=== PATIENT | female | born 1995 | race Caucasian/White ===

== ENCOUNTER → 2017-07-16 | Outpatient (REF) | payer OTHER ==
[2017-07-16 13:59] LABS: FREE T4 1.01 NG/DL (0.76-1.46)
[2017-07-16 17:21] LABS: CHLAMYDIA DNA AMPLIFICATION POSITIVE (NEGATIVE); GC DNA AMPLIFICATION NEGATIVE (NEGATIVE)
== END ==
LOC: M SFHCWAGY 11:50
DX: N92.6 Irregular menstruation, unspecified (principal)

== ENCOUNTER → 2017-09-05 | Outpatient (REF) | payer OTHER ==
[2017-09-05 17:52] LABS: CHLAMYDIA DNA AMPLIFICATION NEGATIVE (NEGATIVE); GC DNA AMPLIFICATION NEGATIVE (NEGATIVE)
== END ==
LOC: M SFHCWAGY 15:52
DX: Z51.89 Encounter for other specified aftercare (principal); Z86.19 Personal history of other infectious and parasitic diseases; Z11.8 Encounter for screening for other infectious and parasitic diseases

== ENCOUNTER → 2017-09-26 | Outpatient (REF) | payer OTHER ==
[2017-09-26 15:05] LABS: CHLAMYDIA DNA AMPLIFICATION NEGATIVE (NEGATIVE); GC DNA AMPLIFICATION NEGATIVE (NEGATIVE)
== END ==
LOC: M SMT 13:00
DX: Z86.19 Personal history of other infectious and parasitic diseases (principal); Z11.3 Encounter for screening for infections with a predominantly sexual mode of transmission; N92.6 Irregular menstruation, unspecified
CPT/HCPCS: 87591

== ENCOUNTER → 2017-10-01 | Outpatient (CLI) | payer OTHER | LOC: M WHC 14:02 | DX: N92.6 Irregular menstruation, unspecified (principal) | CPT/HCPCS: 76830 ==

== ENCOUNTER 2017-10-17 19:50 | Emergency (ER) | payer OTHER ==
[2017-10-17] MEDS: CEPHALEXIN 500 MG CAP PO (21:15)
== END 2017-10-17 21:20 | disposition home or self-care (01) ==
LOC: M ED 19:50
DX: L03.211 Cellulitis of face (principal)
CPT/HCPCS: 99282

== ENCOUNTER → 2017-10-29 | Outpatient (REF) | payer OTHER ==
[2017-10-29 14:16] LABS: CHLAMYDIA DNA AMPLIFICATION NEGATIVE (NEGATIVE); GC DNA AMPLIFICATION NEGATIVE (NEGATIVE)
[2017-10-30 09:46] LABS: HIV 1&2 SCREEN CENTAUR NEGATIVE (NEGATIVE)
== END ==
LOC: M SFHCWAGY 09:43
DX: Z11.3 Encounter for screening for infections with a predominantly sexual mode of transmission (principal); Z11.4 Encounter for screening for human immunodeficiency virus [HIV]
CPT/HCPCS: 36415

== ENCOUNTER 2018-01-04 16:47 | Emergency (ER) | payer OTHER ==
[2018-01-04] MEDS: METOCLOPRAMIDE 10 MG TAB PO (17:14)
[2018-01-04 17:48] LABS: AMORPHOUS SEDIMENT RFX LARGE (NEGATIVE); KETONE, URINE AUTO RFX NEGATIVE (NEGATIVE); LEUKOCYTE ESTERASE UR AUTO RFX NEGATIVE (NEGATIVE); NITRITE, URINE AUTO RFX NEGATIVE (NEGATIVE); RBC, URINE AUTO RFX 2 /HPF (0-3); SPECIFIC GRAVITY UR AUTO RFX 1.011 (1.002-1.035); SQUAM EPITHELIAL CELL UR AURFX 2 /HPF (0-6); WBC, URINE AUTO RFX 0 /HPF (0-3)
[2018-01-04 18:00] LABS: HCG, SERUM QUANTITATIVE 175 MIU/ML
== END 2018-01-04 18:19 | disposition home or self-care (01) ==
LOC: M ED 16:47
DX: R11.2 Nausea with vomiting, unspecified (principal)
CPT/HCPCS: 84702

== ENCOUNTER → 2018-01-28 | Outpatient (REF) | payer OTHER | LOC: M SFHCPLAZ 13:02 | DX: J02.9 Acute pharyngitis, unspecified (principal) ==

== ENCOUNTER 2018-02-10 13:19 | Emergency (ER) | payer OTHER ==
[2018-02-10] MEDS: NS 1,000 ML IV (16:45)
[2018-02-10] MEDS: METOCLOPRAMIDE INJ 10MG/2ML VIAL (J2765) IV (16:45)
[2018-02-10 17:36] LABS: BASO # 0.1 10^3/uL (0.0-0.2); BASO % 0.6 % (0.0-1.0); EOS % 0.4 % (0.0-3.0); HEMOGLOBIN 11.4 g/dl (12.0-15.5); IMMATURE GRANULOCYTE % 0.3 % (0-3.0); LYMPH # 1.3 10^3/uL (1.5-6.5); LYMPH % 13.9 % (24.0-44.0); MEAN CORPUSCULAR HGB CONC 33.5 g/dl (32.0-36.5); MEAN CORPUSCULAR VOLUME 92.4 fl (80.0-96.0); MONO # 0.8 10^3/uL (0.0-0.8); MONO % 8.3 % (0.0-5.0); NEUTROPHILS % 76.5 % (36.0-66.0); PLATELET COUNT, AUTOMATED 237 10^3/uL (150-450); RED BLOOD COUNT 3.68 10^6/uL (4.00-5.40); RED CELL DISTRIBUTION WIDTH 12.3 % (11.5-14.5); WHITE BLOOD COUNT 9.1 10^3/uL (4.0-10.0)
[2018-02-10] MEDS: NS 500 ML IV (18:15)
[2018-02-10 18:16] LABS: ALBUMIN 3.7 GM/DL (3.2-5.2); ALKALINE PHOSPHATASE 47 U/L (45-117); ALT/SGPT 12 U/L (12-78); AMYLASE 66 U/L (25-115); ANION GAP 10 MEQ/L (8-16); AST/SGOT 11 U/L (7-37); BILIRUBIN,TOTAL 0.7 MG/DL (0.2-1.0); BLOOD UREA NITROGEN 9 MG/DL (7-18); CALCIUM LEVEL 8.6 MG/DL (8.5-10.1); CARBON DIOXIDE LEVEL 23 MEQ/L (21-32); CHLORIDE LEVEL 105 MEQ/L (98-107); CREATININE FOR GFR 0.52 MG/DL (0.55-1.30); GLOMERULAR FILTRATION RATE > 60.0 (>60); GLUCOSE, FASTING 63 MG/DL (70-100); HCG, SERUM QUANTITATIVE 148688 MIU/ML; LIPASE 136 U/L (73-393); SODIUM LEVEL 138 MEQ/L (136-145); TOTAL PROTEIN 7.4 GM/DL (6.4-8.2)
[2018-02-10] MEDS: PROMETHAZINE INJ 25 MG/ML VIAL (J2550) IV (19:12)
[2018-02-10 20:42] LABS: CALCIUM OXALATE CRYSTALS RFX SMALL; KETONE, URINE AUTO RFX 2+ mg/dL (NEGATIVE); MUCUS, URINE RFX SMALL (NEGATIVE); NITRITE, URINE AUTO RFX NEGATIVE (NEGATIVE); RBC, URINE AUTO RFX 2 /HPF (0-3); SPECIFIC GRAVITY UR AUTO RFX 1.024 (1.002-1.035); SQUAM EPITHELIAL CELL UR AURFX 2 /HPF (0-6); WBC, URINE AUTO RFX 5 /HPF (0-3)
[2018-02-10 20:43] LABS: LEUKOCYTE ESTERASE UR AUTO RFX TRACE (NEGATIVE)
== END 2018-02-10 21:33 | disposition home or self-care (01) ==
LOC: M ED 13:19
DX: O23.41 Unspecified infection of urinary tract in pregnancy, first trimester (principal); Z3A.09 9 weeks gestation of pregnancy
CPT/HCPCS: J2765

== ENCOUNTER → 2018-03-05 | Outpatient (CLI) | payer OTHER ==
[~2018-03-05] MED LIST: IBUP80TA PO; KEFL500C17 PO; MACR100C43 PO; MAPA500T2 PO; PRENTAB55 PO; PROM25SU2 PR; REGL10TA6 PO; VITAPRTA PO
[2018-03-05 13:48] LABS: BASO % 0.4 % (0.0-1.0); EOS # 0.1 10^3/uL (0.0-0.50); EOS % 0.5 % (0.0-3.0); HEMATOCRIT 35.6 % (36.0-47.0); HEMOGLOBIN 11.7 g/dl (12.0-15.5); LYMPH # 1.7 10^3/uL (1.5-6.5); LYMPH % 15.6 % (24.0-44.0); MEAN CORPUSCULAR HEMOGLOBIN 31.2 pg (27.0-33.0); MEAN CORPUSCULAR HGB CONC 32.9 g/dl (32.0-36.5); MEAN CORPUSCULAR VOLUME 94.9 fl (80.0-96.0); MONO # 0.7 10^3/uL (0.0-0.8); MONO % 6.3 % (0.0-5.0); NEUTROPHILS # 8.2 10^3/uL (1.8-7.7); NEUTROPHILS % 76.8 % (36.0-66.0); PLATELET COUNT, AUTOMATED 277 10^3/uL (150-450); RED BLOOD COUNT 3.75 10^6/uL (4.00-5.40); WHITE BLOOD COUNT 10.7 10^3/uL (4.0-10.0)
[2018-03-05 14:50] LABS: HEPATITIS C VIRUS ABY INDEX 0.1 INDEX (<0.8); HIV 1&2 SCREEN CENTAUR NEGATIVE (NEGATIVE); RUBELLA IgG QUALITATIVE IMMUNE (IMMUNE)
[2018-03-05 15:26] LABS: CHLAMYDIA DNA AMPLIFICATION NEGATIVE (NEGATIVE); GC DNA AMPLIFICATION NEGATIVE (NEGATIVE)
== END ==
LOC: M LAB 12:50
PROVIDERS: ATTEND Advanced Practice Midwife
DX: Z34.81 Encounter for supervision of other normal pregnancy, first trimester (principal); Z3A.08 8 weeks gestation of pregnancy

== ENCOUNTER → 2018-04-15 | Outpatient (CLI) | payer OTHER ==
--- NOTE | 2018-04-16 05:05 | REP ---
Clinical: Anatomical evaluation. Comparison: none. Findings: Examination demonstrates a single live intrauterine in transverse (head to maternal left) presentation. motion is identified by technologist. Placenta is noted posterior and grade grade 1 without evidence for placenta previa or abruption. Amniotic fluid volume is normal. Cervix measures 4.5 cm in length and appears closed. No evidence for nuchal cord. Gestational age by LMP 18 weeks 5 days with NICHOLE 09/11/2018. Gestational age by current measurements 17 weeks 5 days with NICHOLE 09/18/2018 . FHR equals 157 beats per minute. BPD 3.8 cm 17 weeks 5 days HC 14.6 cm 17 weeks 5 days AC 11.3 cm 17 weeks 1 day FL 2.7 cm 18 weeks 1 day HL 2.6 cm 18 weeks 1 day HC/AC ratio 1.29 Estimated weight 203 grams (10th percentile). Anatomical assessment demonstrates normal structures including cranium, choroid plexus, cavum, lungs, four-chamber heart/left ventricular outflow tract, diaphragm, stomach, cord insertion/three-vessel cord, bladder, spine, and extremities. Limited evaluation of the posterior fossa, facial features, right cardiac ventricular outflow tract and kidneys due to positioning and early gestational age. Impression: 1. Single live intrauterine in transverse lie demonstrating appropriate interval growth. 2. Anatomical limitations as noted above may warrant reevaluation and follow-up. Electronically Signed by James Montes MD 04/16/2018 04:56 A
== END ==
LOC: M RAD 14:33
PROVIDERS: ATTEND Advanced Practice Midwife
DX: Z36.89 Encounter for other specified antenatal screening (principal); Z3A.17 17 weeks gestation of pregnancy

== ENCOUNTER 2018-05-03 13:36 | Emergency (ER) | payer OTHER ==
[~2018-05-03] VITALS: Ht 154.9 cm; Wt 51.4 kg
[2018-05-03] MEDS ORDERED: ONDA4TAB6 PO (14:15)
[2018-05-03 14:23] VITALS: BP 110/57
== END 2018-05-03 14:25 | disposition home or self-care (01) ==
LOC: M ED 13:36
DX: J02.9 Acute pharyngitis, unspecified (principal); R11.2 Nausea with vomiting, unspecified; Z79.899 Other long term (current) drug therapy

== ENCOUNTER → 2018-05-08 | Outpatient (REF) | payer OTHER ==
[~2018-05-08] MED LIST changes: +ONDA4TAB6 PO
== END ==
LOC: M SFHCPLAZ 17:25
PROVIDERS: ATTEND Nurse Practitioner Family
DX: J02.9 Acute pharyngitis, unspecified (principal)

== ENCOUNTER → 2018-05-14 | Outpatient (CLI) | payer OTHER ==
--- NOTE | 2018-05-15 03:06 | REP ---
Clinical: Anatomical evaluation. Comparison: 04/15/2018 . Findings: Examination demonstrates a single live intrauterine in breech presentation. motion is identified by technologist. Placenta is noted posterior and grade air grade zero without evidence for placenta previa or abruption. Amniotic fluid volume is normal. Cervix measures 3.6 cm in length and appears closed. No evidence for nuchal cord. Gestational age by LMP 22 weeks 6 days with NICHOLE 09/11/2018 . Gestational age by current measurements 21 weeks 6 day with NICHOLE 09/18/2018 . FHR equals 146 beats per minute. Estimated weight 474 grams ( 22nd percentile). Anatomical assessment demonstrates normal structures including cranium, choroid plexus, cavum, cerebellum/posterior fossa, facial features, lungs, four-chamber heart/ventricular outflow tracts, diaphragm, stomach, cord insertion/three-vessel cord, kidneys/bladder, and extremities. Impression: Single live intrauterine in breech presentation demonstrating appropriate interval growth from first ultrasound. In conjunction with prior examination anatomical assessment is complete and normal. Electronically Signed by James Montes MD 05/15/2018 02:58 A
== END ==
LOC: M RAD 15:06
PROVIDERS: ATTEND Advanced Practice Midwife
DX: O99.89 Other specified diseases and conditions complicating pregnancy, childbirth and the puerperium (principal); O32.1XX0 Maternal care for breech presentation, not applicable or unspecified; Z3A.22 22 weeks gestation of pregnancy

== ENCOUNTER → 2018-06-09 | Outpatient (CLI) | payer OTHER ==
[2018-06-09 16:15] LABS: HEMATOCRIT 31.7 % (36.0-47.0); HEMOGLOBIN 10.3 g/dl (12.0-15.5); MEAN CORPUSCULAR HEMOGLOBIN 30.4 pg (27.0-33.0); MEAN CORPUSCULAR HGB CONC 32.5 g/dl (32.0-36.5); MEAN CORPUSCULAR VOLUME 93.5 fl (80.0-96.0); PLATELET COUNT, AUTOMATED 212 10^3/uL (150-450); RED BLOOD COUNT 3.39 10^6/uL (4.00-5.40)
== END ==
LOC: M LAB 14:14
PROVIDERS: ATTEND Advanced Practice Midwife
DX: O99.89 Other specified diseases and conditions complicating pregnancy, childbirth and the puerperium (principal); Z3A.00 Weeks of gestation of pregnancy not specified

== ENCOUNTER → 2018-06-13 | Outpatient (CLI) | payer OTHER | LOC: M LAB 07:03 | PROVIDERS: ATTEND Advanced Practice Midwife | DX: Z34.82 Encounter for supervision of other normal pregnancy, second trimester (principal); Z3A.00 Weeks of gestation of pregnancy not specified ==

== ENCOUNTER 2018-06-19 16:09 | Outpatient (CLI) | payer OTHER ==
[~2018-06-19] VITALS: Ht 154.9 cm; Wt 55.7 kg
[2018-06-19 16:44] VITALS: BP 112/62
[2018-06-19 18:08] VITALS: BP 113/59
--- NOTE | 2018-06-19 18:08 | NUR ---
L&D triage note 22-year-old G2, P1001 at 28+0 weeks gestation. Complaints of decreased movement throughout the day. No vaginal bleeding, loss of fluid, or uterine contractions. She is occasionally feeling lower pelvic discomfort. Intermittently feeling dizzy. PMH/SH: reviewed ; no changes. Vitals: Normotensive, normal HR, afebrile EFM: Reactive, normal baseline, no decels, +accels [place]: no apparent ctx US,morse: cephalic, MVP = 5.3cm, +FM BPP 8/8 A/P: 22yo at 28+0 weeks. Reassuring maternal and status. -Routine early third TM precautions reviewed -Follow up in office as scheduled. Khoa Hamilton DO
== END 2018-06-19 18:08 | disposition home or self-care (01) ==
LOC: M LDO 16:09
PROVIDERS: ATTEND Obstetrics & Gynecology
DX: O36.8130 Decreased fetal movements, third trimester, not applicable or unspecified (principal); Z3A.28 28 weeks gestation of pregnancy

== ENCOUNTER → 2018-08-12 | Outpatient (REF) | payer OTHER | LOC: M LAB REF 10:19 | PROVIDERS: ATTEND Obstetrics & Gynecology | DX: Z34.83 Encounter for supervision of other normal pregnancy, third trimester (principal); Z36.85 Encounter for antenatal screening for Streptococcus B ==

== ENCOUNTER 2018-08-23 21:28 | Outpatient (CLI) | payer OTHER ==
[~2018-08-23] VITALS: Ht 154.9 cm; Wt 60.3 kg
[2018-08-23 21:43] VITALS: BP 110/58
== END 2018-08-23 23:10 | disposition home or self-care (01) ==
LOC: M LDO 21:28
PROVIDERS: ATTEND Specialist
DX: O26.893 Other specified pregnancy related conditions, third trimester (principal); R10.30 Lower abdominal pain, unspecified; N89.8 Other specified noninflammatory disorders of vagina; O47.03 False labor before 37 completed weeks of gestation, third trimester; Z3A.37 37 weeks gestation of pregnancy

== ENCOUNTER 2018-09-02 21:20 | Inpatient (IN) | payer OTHER ==
[~2018-09-02] VITALS: Ht 154.9 cm; Wt 59.4 kg
[2018-09-02 21:39] VITALS: BP 131/71
[2018-09-02] MEDS ORDERED: LR 1,000 ML IV SCH (21:46)
[2018-09-02] MEDS ORDERED: OXYTOCIN 30 UNITS IN 0.9% NaCl 500ML IV BAG (J2590) As Ordered ONE (22:00)
[2018-09-02 22:12] LABS: BASO % 0.2 % (0.0-1.0); EOS % 0.2 % (0.0-3.0); HEMATOCRIT 31.2 % (36.0-47.0); HEMOGLOBIN 9.9 g/dl (12.0-15.5); LYMPH % 18.1 % (24.0-44.0); MEAN CORPUSCULAR HEMOGLOBIN 27.1 pg (27.0-33.0); MEAN CORPUSCULAR HGB CONC 31.7 g/dl (32.0-36.5); MEAN CORPUSCULAR VOLUME 85.5 fl (80.0-96.0); MONO # 1.1 10^3/uL (0.0-0.8); MONO % 9.4 % (0.0-5.0); NEUTROPHILS % 71.5 % (36.0-66.0); PLATELET COUNT, AUTOMATED 160 10^3/uL (150-450); RED BLOOD COUNT 3.65 10^6/uL (4.00-5.40); WHITE BLOOD COUNT 11.1 10^3/uL (4.0-10.0)
[2018-09-02] MEDS ORDERED: OXYTOCIN DRIP 30 UNITS in APPROPRIATE DILUENT 1 EA IV SCH (22:15)
[2018-09-02] MEDS ORDERED: ACETAMINOPHEN 500 MG TAB PO PRN (22:15)
[2018-09-02] MEDS ORDERED: DIBUCAINE 1% OINTMENT 30GM TOP PRN (22:15)
[2018-09-02] MEDS ORDERED: DOCUSATE SODIUM 100 MG CAP PO PRN (22:15)
[2018-09-02] MEDS ORDERED: ONDANSETRON 4MG/2ML VIAL (J2405) IV PRN (22:15)
[2018-09-02] MEDS ORDERED: ACETAMINOPHEN TAB 650MG DOSE (2X325MG) PO PRN (22:15)
[2018-09-02] MEDS ORDERED: IBUPROFEN 600 MG TAB PO PRN (22:15)
--- NOTE | 2018-09-02 22:16 | HPE ---
DATE OF ADMISSION: 09/02/2018 A 22-year-old 2, para 1 female at 38-5/7 weeks gestation by last menstrual period (LMP), consistent with an 8-week ultrasound, estimated date of confinement (EDC) 09/11/2018, presents with spontaneous loss of fluid per vagina shortly before admission. She continued to leak fluid. Contractions increased in intensity. She denies vaginal bleeding. COURSE: The patient initiated care at 8 weeks gestation, 02/05/2018. First trimester blood pressure 114/64, weight 104. Her course was unremarkable. OBSTETRICAL HISTORY: August 2014: 40-week vaginal delivery, 7 pound 11 ounce male infant, no complications. MEDICAL HISTORY: None. ALLERGIES: None. SURGICAL HISTORY: None. SOCIAL HISTORY: The father of the baby is involved. She denies cigarettes, alcohol, or drug use during . FAMILY HISTORY: Noncontributory. PHYSICAL EXAMINATION: Blood pressure 102/58, weight 133, appears uncomfortable. Head and neck exam: Normal. Lungs: Clear. Heart: Regular rate and rhythm. Abdomen: Nontender, gravid. heart tones: Category 1. Sterile vaginal exam: Grossly ruptured, clear fluid, 5 cm dilated, 100% effaced, contractions every 2-3 minutes. Extremities: Nontender. LABS: Blood type A positive, Rubella immune. GBS negative 08/12/2018. ASSESSMENT: A 22-year-old 2, para 1 at 38-5/7 weeks gestation, presents with spontaneous rupture of membranes and active labor. PLAN: Patient admitted on 09/02/2018.
[2018-09-02 22:20] VITALS: BP 123/57
--- NOTE | 2018-09-02 22:26 | DN ---
DATE: 09/02/2018 PREDELIVERY DIAGNOSIS: 38-5/7 weeks, labor. POSTDELIVERY DIAGNOSIS: Delivered. PROCEDURE: Spontaneous vaginal delivery. AUTOMATIC PAD MAKING MACHINE OPERATOR: Dr. Darion Collins SHOW GIRL: Barbara Perdomo MD ANESTHESIA: None. ESTIMATED BLOOD LOSS: 300 mL. FINDINGS: 7 pound 1 ounce, 3190 gram female , scores 8 and 9. DELIVERY SUMMARY: After a short second stage, the patient had spontaneous delivery of a 7 pound 1 ounce female , scores of 8 and 9 with no delivery of anesthesia. Loose nuchal cord times one was reduced manually. The shoulders were delivered with ease. The infant cried immediately and was handed to the mother. The cord was doubly clamped and cut. The placenta delivered spontaneously and appeared to be intact. The patient received IV Pitocin after delivery of the placenta. Small first-degree perineal laceration, did not require repair. Sponge counts were correct.
[2018-09-02] MEDS: IBUPROFEN 800 MG TAB PO PRN (22:36)
[2018-09-02 22:38] VITALS: BP 116/62
[2018-09-02] MEDS ORDERED: MAPA500T2 PO (22:46)
[2018-09-02 22:53] VITALS: BP 117/58
[2018-09-02 23:08] VITALS: BP 117/59
[2018-09-03 01:39] VITALS: BP 116/57
[2018-09-03 04:56] VITALS: BP 99/51
[2018-09-03] MEDS: PRENATAL VITAMINS CHEWABLE TABLET PO SCH (08:17)
[2018-09-03] MEDS: IBUPROFEN 800 MG TAB PO PRN (15:41)
[2018-09-03 18:00] VITALS: BP 122/71
[2018-09-04 05:17] VITALS: BP 103/57
[2018-09-04] MEDS ORDERED: IBUP80TA PO (06:36)
[2018-09-04] MEDS: PRENATAL VITAMINS CHEWABLE TABLET PO SCH (08:05)
[2018-09-04] MEDS: IBUPROFEN 800 MG TAB PO PRN (08:12)
== END 2018-09-04 10:45 | disposition home or self-care (01) | DRG 560 ==
LOC: M LDO 21:20 → M LDI 21:40 → M OBS 09-03 01:00
PROVIDERS: ADMIT Specialist; ATTEND Specialist
PROC: 10E0XZZ Delivery of Products of Conception, External Approach (ICD-10-PCS; principal; 2018-09-02)
DX: O69.82X0 Labor and delivery complicated by other cord entanglement, without compression, not applicable or unspecified (principal); Z37.0 Single live birth; Z3A.38 38 weeks gestation of pregnancy; O70.0 First degree perineal laceration during delivery

== ENCOUNTER → 2020-04-26 | Outpatient (REF) | payer OTHER ==
[~2020-04-26] MED LIST changes: -PROM25SU2 PR; +PROM25SU3 PR
[2020-04-26 15:46] LABS: CHLAMYDIA DNA AMPLIFICATION NEGATIVE (NEGATIVE); GC DNA AMPLIFICATION NEGATIVE (NEGATIVE)
== END ==
LOC: M SFHCWAGY 13:08
PROVIDERS: ATTEND Nurse Practitioner Women's Health
DX: Z12.4 Encounter for screening for malignant neoplasm of cervix (principal); Z11.3 Encounter for screening for infections with a predominantly sexual mode of transmission

== ENCOUNTER → 2021-10-20 | Outpatient (CLI) | payer OTHER ==
[2021-10-20 13:52] LABS: BASO # 0.1 10^3/uL (0.0-0.2); EOS # 0.1 10^3/uL (0.0-0.5); HEMOGLOBIN 12.6 g/dl (12.0-15.5); LYMPH # 1.6 10^3/uL (1.5-5.0); LYMPH % 26.6 % (24.0-44.0); MEAN CORPUSCULAR HEMOGLOBIN 30.9 pg (27.0-33.0); MEAN CORPUSCULAR HGB CONC 32.3 g/dl (32.0-36.5); MEAN CORPUSCULAR VOLUME 95.6 fl (80.0-96.0); MONO # 0.5 10^3/uL (0.0-0.8); NEUTROPHILS # 3.7 10^3/uL (1.5-8.5); NEUTROPHILS % 62.2 % (36.0-66.0); PLATELET COUNT, AUTOMATED 252 10^3/uL (150-450); RED BLOOD COUNT 4.08 10^6/uL (4.00-5.40)
[2021-10-20 14:30] LABS: ALBUMIN 4.1 GM/DL (3.2-5.2); ALT/SGPT 13 U/L (12-78); BILIRUBIN,TOTAL 0.5 MG/DL (0.2-1.0); BLOOD UREA NITROGEN 11 MG/DL (7-18); CARBON DIOXIDE LEVEL 26 MEQ/L (21-32); CHLORIDE LEVEL 108 MEQ/L (98-107); CREATININE FOR GFR 0.64 MG/DL (0.55-1.30); FREE T4 0.93 NG/DL (0.76-1.46); GLOMERULAR FILTRATION RATE > 60.0 (>60); GLUCOSE, FASTING 82 MG/DL (70-100); IRON (FE) 81 UG/DL (50-170); PERCENT SATURATION 27.1 % (13.2-45.0); POTASSIUM SERUM 4.5 MEQ/L (3.5-5.1); SODIUM LEVEL 137 MEQ/L (136-145); TOTAL IRON BINDING CAPACITY 299 UG/DL (250-450); TOTAL PROTEIN 7.5 GM/DL (6.4-8.2)
== END ==
LOC: M PLALAB 11:44
PROVIDERS: ATTEND Physician Assistant
DX: T14.8XXA Other injury of unspecified body region, initial encounter (principal)

== ENCOUNTER → 2022-01-11 | Outpatient (CLI) | payer OTHER | LOC: M WHC 09:24 | PROVIDERS: ATTEND Nurse Practitioner Family | DX: N63.10 Unspecified lump in the right breast, unspecified quadrant (principal) ==

== ENCOUNTER → 2022-07-30 | Outpatient (REF) | payer OTHER, MEDICAID | LOC: M SFHCWAGY 15:22 | PROVIDERS: ATTEND Nurse Practitioner Family | DX: Z12.4 Encounter for screening for malignant neoplasm of cervix (principal); R87.610 Atypical squamous cells of undetermined significance on cytologic smear of cervix (ASC-US); R87.810 Cervical high risk human papillomavirus (HPV) DNA test positive ==

== ENCOUNTER → 2022-09-04 | Outpatient (REF) | payer OTHER, MEDICAID | LOC: M SFHCWAGY 18:25 | PROVIDERS: ATTEND Obstetrics & Gynecology | DX: R87.610 Atypical squamous cells of undetermined significance on cytologic smear of cervix (ASC-US) (principal) ==

== ENCOUNTER → 2023-08-07 | Outpatient (REF) | payer OTHER, MEDICAID | LOC: M SFHCWAGY 13:20 | PROVIDERS: ATTEND Nurse Practitioner Family | DX: Z12.4 Encounter for screening for malignant neoplasm of cervix (principal); Z77.9 Other contact with and (suspected) exposures hazardous to health; R87.612 Low grade squamous intraepithelial lesion on cytologic smear of cervix (LGSIL); R87.611 Atypical squamous cells cannot exclude high grade squamous intraepithelial lesion on cytologic smear of cervix (ASC-H) ==